=== PATIENT | male | born 1965 | race Caucasian/White ===

== ENCOUNTER 2019-11-28 20:17 | Emergency (ER) | payer MEDICARE, OTHER ==
[~2019-11-28] VITALS: Ht 180.3 cm; Wt 64.4 kg
[~2019-11-28 20:17] MED LIST: NO REPORTABLE MEDS
--- NOTE | 2019-11-28 20:27 | NUR ---
PRESENTED TO THE ER FOR C/O RLE AND R HIP PAIN S/P FALL . PT ALERT, OX4, RESPONSIVE TO QUESTIONS. BLIND. PT WAS ASSISTED TO BED 2 AND WAS PLACED ON A MONITOR ,
--- NOTE | 2019-11-28 20:30 | NUR ---
SHAHEED BARAHONA AT BED SIDE
--- NOTE | 2019-11-28 20:36 | NUR ---
NICO ([facility], KIDNEY CLOUD PHYSICIST) CONTACT INFORMATION: [phone]
--- NOTE | 2019-11-28 20:37 | NUR ---
LAURA () CONTACT INFORMATION: [phone]
[2019-11-28] MEDS ORDERED: TRAMADOL HCL 50 MG TABLET ONE (20:41)
[2019-11-28] MEDS: TRAMADOL HCL 50 MG TABLET PO ONE (20:50)
[2019-11-28 21:03] LABS: BILIRUBIN,URINE Negative (NEGATIVE); BLOOD, URINE Small Ery/uL (NEGATIVE); COLOR,URINE Yellow (YELLOW); KETONES,URINE Negative (NEGATIVE); LEUKOCYTE ESTERASE ,URINE Negative (NEGATIVE); NITRITE, URINE Negative (NEGATIVE); PH,URINE 6.5 (5.0-8.0); PROTEIN,URINE 30 mg/dl (NEGATIVE); UGLUCOSE 100 MG/DL mg/dL (NEGATIVE); UROBILINOGEN,URINE 0.2 EU/dL (0.2)
[2019-11-28 21:12] LABS: APPEARANCE,URINE SLIGHTLY HAZY (CLEAR)
[2019-11-28 21:16] LABS: BACTERIA,URINE Few /HPF (None Seen); SQUAMOUS EPITHELIAL CELL,UR Rare /HPF (None Seen); WBC,URINE 0-2 /HPF (0-3)
--- NOTE | 2019-11-28 21:22 | NUR ---
PT WAS TAKEN TO CT
--- NOTE | 2019-11-28 21:22 | NUR ---
DR MAGALLANES AT BED SIDE
[2019-11-28 21:31] LABS: BASOPHILS % (AUTO) 0.4 % (0.0-2.0); EOSINOPHILS % (AUTO) 0.3 % (0.0-6.0); HEMATOCRIT 27 % (39-51); LYMPHOCYTES # (AUTO) 0.8 /CMM (0.8-4.8); LYMPHOCYTES % (AUTO) 12.6 % (20.0-44.0); MEAN CORPUSCULAR HGB CONC 34 g/dl (31.0-36.0); MEAN CORPUSCULAR VOLUME 102 fL (80-96); MONOCYTES # (AUTO) 0.4 /CMM (0.1-1.30); MONOCYTES % (AUTO) 6.5 % (2.0-12.0); NEUTROPHILS # (AUTO) 4.9 /CMM (1.8-8.9); NEUTROPHILS % (AUTO) 80.2 % (43.0-81.0); PLATELET COUNT (AUTO) 226 /CMM (150-450); RED BLOOD CELL COUNT(AUTO) 2.66 MIL/uL (4.5-6.0); WHITE BLOOD COUNT (AUTO) 6.1 K/uL (4.3-11.0)
[2019-11-28 22:03] LABS: CALCIUM, SERUM 9.1 mg/dL (8.5-10.1); CREATININE 6.1 mg/dL (0.6-1.3); POTASSIUM 4.1 mmol/L (3.5-5.1)
--- NOTE | 2019-11-28 22:12 | NUR ---
[place] SPEAKING WITH NICO ([facility] EDGER MACHINE OPERATOR)
--- NOTE | 2019-11-28 22:32 | NUR ---
PT IS MEDICALLY STABLE OFR D/C. Patient discharged to home in stable condition. Written and verbal after care instructions given. Patient verbalizes understanding of instruction and was assisted to the car via wc
[2019-11-28 22:37] VITALS: BP 151/78
== END 2019-11-28 22:37 | disposition home or self-care (01) ==
LOC: ER 20:28
DX: S30.1XXA Contusion of abdominal wall, initial encounter (principal); S09.8XXA Other specified injuries of head, initial encounter; M25.551 Pain in right hip; D64.9 Anemia, unspecified; I10 Essential (primary) hypertension; E11.9 Type 2 diabetes mellitus without complications; Z86.73 Personal history of transient ischemic attack (TIA), and cerebral infarction without residual deficits; Z94.0 Kidney transplant status; W01.0XXA Fall on same level from slipping, tripping and stumbling without subsequent striking against object, initial encounter; Y93.89 Activity, other specified; Y92.89 Other specified places as the place of occurrence of the external cause; Y99.8 Other external cause status
CPT/HCPCS: 36415; 70450; 72125; 73502; 80048; 81001; 85025; 99285; L0172; 81000-TC

== ENCOUNTER 2019-12-01 09:20 | Emergency (ER) | payer MEDICARE, OTHER ==
[~2019-12-01] VITALS: Ht 182.9 cm; Wt 65.8 kg
[2019-12-01 09:25] VITALS: BP 166/60
[2019-12-01] MEDS ORDERED: ONDANSETRON HCL/PF 4 MG/2 ML VIAL IVP ONE (10:00)
[2019-12-01] MEDS ORDERED: IV NS 0.9% 500 ML BAG IV ONE (10:00)
[2019-12-01] MEDS ORDERED: ONDANSETRON HCL/PF 4 MG/2 ML VIAL ONE (10:06)
[2019-12-01 10:09] LABS: BASOPHILS % (AUTO) 0.6 % (0.0-2.0); EOSINOPHILS % (AUTO) 0.4 % (0.0-6.0); HEMATOCRIT 30 % (39-51); LYMPHOCYTES # (AUTO) 0.9 /CMM (0.8-4.8); LYMPHOCYTES % (AUTO) 13.2 % (20.0-44.0); MEAN CORPUSCULAR HGB CONC 34 g/dl (31.0-36.0); MEAN CORPUSCULAR VOLUME 100 fL (80-96); MONOCYTES # (AUTO) 0.4 /CMM (0.1-1.30); MONOCYTES % (AUTO) 5.2 % (2.0-12.0); NEUTROPHILS # (AUTO) 5.7 /CMM (1.8-8.9); NEUTROPHILS % (AUTO) 80.6 % (43.0-81.0); PLATELET COUNT (AUTO) 224 /CMM (150-450); RED BLOOD CELL COUNT(AUTO) 2.95 MIL/uL (4.5-6.0); WHITE BLOOD COUNT (AUTO) 7.1 K/uL (4.3-11.0)
--- NOTE | 2019-12-01 10:11 | NUR ---
Patient awake alert started heplock LAC and meds given keep patient comfortable .
[2019-12-01 10:19] LABS: CALCIUM, SERUM 9.6 mg/dL (8.5-10.1); POTASSIUM 3.8 mmol/L (3.5-5.1)
--- NOTE | 2019-12-01 10:24 | NUR ---
ADRIÁN ; ASKING FOR UPDATES
[2019-12-01 10:25] LABS: ALBUMIN 3.9 g/dL (3.4-5.0); BILIRUBIN,DIRECT 0.2 mg/dL (0.0-0.2); BILIRUBIN,TOTAL 0.6 mg/dL (0.2-1.0); TOTAL PROTEIN, SERUM 7.7 g/dL (6.4-8.2)
--- NOTE | 2019-12-01 11:47 | NUR ---
Called made aware for DC home instruction agrees to see PMD in 2 datys verblized undertanding .
--- NOTE | 2019-12-01 11:54 | NUR ---
Patient assisted to WC ,removed heplock LAC noted cath intact no edema no pain .
--- NOTE | 2019-12-01 11:56 | NUR ---
Awaiting for for rides home
--- NOTE | 2019-12-01 12:05 | NUR ---
Patient discharged to home in stable condition. Written and verbal after care instructions given. Patient verbalizes understanding of instruction.
== END 2019-12-01 12:17 | disposition home or self-care (01) ==
LOC: ER 09:24
DX: R11.2 Nausea with vomiting, unspecified (principal); E11.9 Type 2 diabetes mellitus without complications; I10 Essential (primary) hypertension; Z85.528 Personal history of other malignant neoplasm of kidney; Z86.73 Personal history of transient ischemic attack (TIA), and cerebral infarction without residual deficits; Z95.5 Presence of coronary angioplasty implant and graft; Z94.0 Kidney transplant status; Z88.5 Allergy status to narcotic agent
CPT/HCPCS: 36415; 71045; 80048; 80076; 83690; 84484; 85025; 93005; 96374; 99285; J2405; J7030

== ENCOUNTER 2021-04-13 00:48 | Inpatient (IN) | payer MEDICARE, OTHER ==
[~2021-04-13] VITALS: Ht 177.8 cm; Wt 71.2 kg
--- NOTE | 2021-04-13 01:08 | NUR ---
PT AAOX4. BIBRA C/O LLQ ABD PAIN. AWAITING ER MD FOR EVAL AND ORDERS.
[2021-04-13] MEDS ORDERED: ACETAMINOPHEN 325 MG TABLET PO ONE (02:00)
[2021-04-13] MEDS ORDERED: IV NS 0.9% 1,000 ML IV ONE (02:00)
[2021-04-13] MEDS ORDERED: ACETAMINOPHEN 325 MG TABLET ONE (02:04)
[2021-04-13 02:06] LABS: CALCIUM, SERUM 9.1 mg/dL (8.5-10.1); CREATININE 1.7 mg/dL (0.6-1.3); POTASSIUM 3.9 mmol/L (3.5-5.1)
[2021-04-13 02:18] LABS: ALBUMIN 3.5 g/dL (3.4-5.0); BILIRUBIN,DIRECT 0.3 mg/dL (0.0-0.2); BILIRUBIN,TOTAL 0.8 mg/dL (0.2-1.0); TOTAL PROTEIN, SERUM 7.2 g/dL (6.4-8.2)
[2021-04-13 02:20] LABS: BASOPHILS % (AUTO) 0.2 % (0.0-2.0); EOSINOPHILS % (AUTO) 0.1 % (0.0-6.0); HEMATOCRIT 37 % (39-51); HEMOGLOBIN 12.9 g/dL (13.5-17.5); LYMPHOCYTES # (AUTO) 0.6 K/uL (0.8-4.8); LYMPHOCYTES % (AUTO) 26.5 % (20.0-44.0); MEAN CORPUSCULAR HGB CONC 35 g/dl (31.0-36.0); MEAN CORPUSCULAR VOLUME 94 fL (80-96); MONOCYTES # (AUTO) 0.2 K/uL (0.1-1.30); MONOCYTES % (AUTO) 8.4 % (2.0-12.0); NEUTROPHILS # (AUTO) 1.6 K/uL (1.8-8.9); NEUTROPHILS % (AUTO) 64.8 % (43.0-81.0); PLATELET COUNT (AUTO) 138 K/uL (150-450); RED BLOOD CELL COUNT(AUTO) 3.97 MIL/uL (4.5-6.0); WHITE BLOOD COUNT (AUTO) 2.4 K/uL (4.3-11.0)
--- NOTE | 2021-04-13 04:07 | NUR ---
COVID SWAB DONE AND SENT TO LAB
--- NOTE | 2021-04-13 04:15 | NUR ---
URINE COLLECTED AND SENT TO LAB
[2021-04-13] MEDS ORDERED: MAGNESIUM HYDROXIDE 30 ML UDC PO PRN (04:30)
[2021-04-13] MEDS ORDERED: HYDROCODONE/APAP 5/325MG TABLET PO PRN (04:30)
[2021-04-13] MEDS ORDERED: ONDANSETRON HCL/PF 4 MG/2 ML VIAL IVP PRN (04:30)
[2021-04-13] MEDS ORDERED: ACETAMINOPHEN 325 MG TABLET PO PRN (04:30)
[2021-04-13] MEDS ORDERED: ZOLPIDEM TARTRATE 5 MG TABLET PO PRN (04:30)
[2021-04-13] MEDS ORDERED: MAG HYDROX/AL HYDROX/SIMETH 30 ML UDC PO PRN (04:30)
[2021-04-13] MEDS ORDERED: Z GUARD REMEDY 4 OZ OINT TP PRN (04:30)
[2021-04-13 04:33] LABS: BILIRUBIN,URINE NEGATIVE (NEGATIVE); COLOR,URINE YELLOW (YELLOW); LEUKOCYTE ESTERASE ,URINE NEGATIVE (NEGATIVE); NITRITE, URINE NEGATIVE (NEGATIVE); PROTEIN,URINE 30 mg/dl (NEGATIVE); UGLUCOSE 100 MG/DL mg/dL (NEGATIVE)
[2021-04-13] MEDS ORDERED: GABAPENTIN 300 MG CAPSULE PO SCH (06:00)
[2021-04-13] MEDS ORDERED: TRAZODONE 50 MG TABLET PO SCH (06:00)
--- NOTE | 2021-04-13 07:24 | NUR ---
REPORT GIVEN TO DILSHAD FRANKS FOR [place]
[2021-04-13] MEDS ORDERED: PANTOPRAZOLE 40 MG TABLET.DR PO ONE (07:39)
[2021-04-13] MEDS ORDERED: DEXAMETHASONE SOD PHOSPHATE 10 MG/ML VIAL ONE (08:04)
[2021-04-13] MEDS: PANTOPRAZOLE 40 MG TABLET.DR PO SCH ×2 (08:12→21:56)
[2021-04-13 08:54] LABS: NEUTROPHILS % (MANUAL) 57 (42-76)
[2021-04-13 08:55] LABS: BAND % (MANUAL) 10 % (0.0-5.0); LYMPHOCYTES % (MANUAL) 23 % (16-48); MONOCYTES % (MANUAL) 10 % (0-11.0)
[2021-04-13] MEDS ORDERED: DEXAMETHASONE SOD PHOSPHATE 10 MG/ML VIAL IV SCH (09:00)
--- NOTE | 2021-04-13 09:32 | NUR ---
REPORT GIVEN TO MELA FRANKS FOR [place]
[2021-04-13] MEDS ORDERED: AMLO-213 PO (10:43)
[2021-04-13] MEDS ORDERED: TAMS-12 PO (10:43)
[2021-04-13] MEDS ORDERED: CARV25TA2 PO (10:43)
[2021-04-13] MEDS ORDERED: ESCI10TA PO (10:43)
[2021-04-13] MEDS ORDERED: PITA1TAB PO (10:43)
[2021-04-13] MEDS ORDERED: PHOS250T5 PO (10:43)
[2021-04-13] MEDS ORDERED: LANS30CA56 PO (10:43)
[2021-04-13] MEDS ORDERED: INSU100V7 SQ (10:43)
[2021-04-13] MEDS ORDERED: TRAZ-257 PO (10:43)
[2021-04-13] MEDS ORDERED: PRED2.5T PO (10:43)
[2021-04-13] MEDS ORDERED: GABA-532 PO ×2 (10:43)
[2021-04-13] MEDS ORDERED: CHOL100043 PO (10:43)
[2021-04-13] MEDS ORDERED: OMEG1CAP PO (10:43)
[2021-04-13] MEDS ORDERED: LORA-259 PO (10:43)
[2021-04-13] MEDS ORDERED: TACR1CAP2 PO ×2 (10:43)
[2021-04-13] MEDS ORDERED: MYCO180T3 PO (10:43)
[2021-04-13] MEDS ORDERED: INSU100V27 SQ (10:43)
[2021-04-13] MEDS ORDERED: MULT-24 PO (10:43)
--- NOTE | 2021-04-13 10:49 | NUR ---
PT TRANSPORTED USING ACLS PROTOCOL
--- NOTE | 2021-04-13 11:00 | NUR ---
RN NOTES PATIENT RECEIVED FROM ER DEPT REPORT TAKEN FROM ALLIE FRANKS. PATIENT ALERT/ORIENTED X 3, ABLE TO MAKE NEEDS KNOWN. PATIENT TOLERATING ROOM AIR WELL SAT 97%. ADMITTING DX IS ABDOMINAL PAIN, COVID POSITIVE. PATIENT IS BLIND. IV ACCESS ON LEFT AC #18, PATENT AND INTACT. PATIENT REFUSED TO CHANGE INTO HOSPITAL GOWN. ALL BELONGINGS ACCOUNTED FOR AND LISTED ON CHART. PATIENT HAD A BOTTLE OF ATIVAN WITH HIM, COUNTED 26 OF TABLETS, LISTED AND GIVEN TO PHARMACY. SKIN IS INTACT. ALL NEEDS ATTENDED. ALL APPLICABLE ISOLATION PRECAUTIONS IN PLACE. ALL SAFETY MEASURES IN PLACE. HOB ELEVATED BED LOCKED AND IN LOWEST POSITION WITH SIDERAILS UP CALL LIGHT WITHIN REACH. WILL CONTINUE TO MONITOR ACCORDINGLY.
[2021-04-13] MEDS ORDERED: AMLODIPINE BESYLATE 10 MG TABLET PO PRN (11:30)
[2021-04-13] MEDS ORDERED: DEXTROSE 50%-WATER 50 ML DISP.SYRIN IV PRN (11:30)
[2021-04-13] MEDS ORDERED: LORAZEPAM 1 MG TABLET PO PRN ×2 (11:30→16:30)
[2021-04-13 12:00] VITALS: BP 113/57
[2021-04-13] MEDS ORDERED: CARVEDILOL 12.5 MG TABLET PO PRN ×2 (12:30→12:55)
[2021-04-13] MEDS: INSULIN REGULAR, HUMAN 100 UNIT/ML 3 ML VIAL SQ PRN ×2 (13:59→17:49)
[2021-04-13] MEDS: CEFTRIAXONE 1 G in IV D5W 50 ML IV SCH (14:01)
[2021-04-13] MEDS: BLOOD SUGAR DIAGNOSTIC 1 EACH STRIP VI SCH ×3 (14:20→22:16)
[2021-04-13] MEDS: predniSONE 5 MG TABLET PO SCH (14:20)
[2021-04-13] MEDS: METRONIDAZOLE 500MG/ NS 100ML 500 MG in PREMIX 1 EA IV SCH ×2 (14:42→21:55)
[2021-04-13] MEDS: IV D5/0.45 NACL 1,000 ML IV PRN (14:44)
[2021-04-13 16:00] VITALS: BP 120/64
[2021-04-13] MEDS: K PHOS NEUTRAL 250 MG TABLET PO SCH (16:46)
[2021-04-13] MEDS: GABAPENTIN 300 MG CAPSULE PO SCH ×2 (16:46→21:56)
[2021-04-13] MEDS: MORPHINE SULFATE INJ 2 MG/ML DISP.SYRIN IV PRN ×2 (17:18→22:25)
[2021-04-13] MEDS: TACROLIMUS ANHYDROUS 0.5 MG CAPSULE PO SCH (18:16)
--- NOTE | 2021-04-13 19:13 | NUR ---
RN CLOSING NOTES PATIENT REMAINS IN STABLE CONDITION THROUGHOUT SHIFT. BREATHING EVEN AND UNLABORED ON ROOM AIR TOLERATING WELL SAT 97 %. IV ACCESS ON LEFT AC #18 PATENT AND INTACT, INFUSING D5 1/2 NS @ 75MLL/HR NO SIGNS OF INFILTRATIONS. ALL DUE MEDS GIVEN ORDERED. KEPT PATIENT CLEAN, DRY AND COMFORTABLE. ALL NEEDS ATTENDED. ALL APPLICABLE ISOLATION PRECAUTIONS IN PLACE. ALL SAFETY MEASURES IN PLACE: HOB ELEVATED, BED LOCKED AND IN LOWEST POSITION WITH SIDERAILS UP. CALL LIGHT WITHIN REACH. WILL ENDORSE TO ONCOMING NURSE FOR CONTINUITY OF CARE.
[2021-04-13] MEDS: MYCOPHENOLATE SODIUM 180 MG TABLET.DR PO SCH (21:00)
[2021-04-13] MEDS: TRAZODONE 50 MG TABLET PO SCH (21:55)
[2021-04-13 22:00] VITALS: BP 130/68
[2021-04-13] MEDS: INSULIN GLARGINE, 100 UNIT/ML CARTRIDGE SQ SCH (22:17)
[2021-04-13] MEDS: *INSULIN REGULAR(HUMULIN R)HUM 100 UNIT/ML VIAL SQ PRN (22:19)
[2021-04-13] MEDS ORDERED: MYCOPHENOLATE SODIUM 180 MG TABLET.DR PO ONE ×2 (23:28→23:30)
[2021-04-13] MEDS: LORAZEPAM 1 MG TABLET PO PRN (23:30)
--- NOTE | 2021-04-13 23:30 | NUR ---
RN NOTES, MYFORTC MEDICATION AVAILABLE ONLY 2 TABS, PT SHOULD RECEIVED 3 TABS 180MG, PER MIKHAIL GIVE THE 2 TABS AVAILABLE, ORDER NOTED AND CARRIED OUT.
[2021-04-14] VITALS: BP 146/73
[2021-04-14 04:00] VITALS: BP 146/73
[2021-04-14] MEDS: METRONIDAZOLE 500MG/ NS 100ML 500 MG in PREMIX 1 EA IV SCH ×3 (06:13→21:08)
--- NOTE | 2021-04-14 07:30 | NUR ---
ENDORSE TO PATIENT TO DEBORAH FRANKS FOR CON OF CARE, NO SIGNIFICANT CHANGE IN CONDITION DURING THE NIGHT.
[2021-04-14 07:38] LABS: BASOPHILS % (AUTO) 0.2 % (0.0-2.0); EOSINOPHILS % (AUTO) 0.1 % (0.0-6.0); HEMATOCRIT 36 % (39-51); HEMOGLOBIN 12.4 g/dL (13.5-17.5); LYMPHOCYTES # (AUTO) 0.5 K/uL (0.8-4.8); LYMPHOCYTES % (AUTO) 22.4 % (20.0-44.0); MEAN CORPUSCULAR HGB CONC 35 g/dl (31.0-36.0); MEAN CORPUSCULAR VOLUME 95 fL (80-96); MONOCYTES # (AUTO) 0.2 K/uL (0.1-1.30); MONOCYTES % (AUTO) 8.6 % (2.0-12.0); NEUTROPHILS # (AUTO) 1.5 K/uL (1.8-8.9); NEUTROPHILS % (AUTO) 68.7 % (43.0-81.0); PLATELET COUNT (AUTO) 130 K/uL (150-450); RED BLOOD CELL COUNT(AUTO) 3.77 MIL/uL (4.5-6.0); WHITE BLOOD COUNT (AUTO) 2.2 K/uL (4.3-11.0)
--- NOTE | 2021-04-14 07:42 | NUR ---
FIBERGLASS BOAT MAKER OPENING NOTES RECEIVED PATIENT IN BED, AWAKE, A/O X4. PATIENT IS BLIND. PATIENT ON ROOM AIR; BREATHING EVEN AND UNLABORED; NO SOB NOTED AT THIS TIME. TELE MONITOR WITH A CURRENT READING OF SR 90. IV ACCESS AT LAC G # 18 PRESENT AND INTACT INFUSING D5 1/2 NS @ 75 MLS/HR. NO COMPLAINS OF PAIN. SAFETY PRECAUTIONS IN PLACE; BED IN LOW POSITION AND LOCKED, RAILS UP X2, CALL LIGHT WITHIN REACH. WILL CONTINUE TO MONITOR PATIENT.
[2021-04-14] MEDS: BLOOD SUGAR DIAGNOSTIC 1 EACH STRIP VI SCH ×4 (07:53→22:26)
[2021-04-14] MEDS: TAMSULOSIN 0.4 MG CAP.SR.24H PO SCH (08:21)
[2021-04-14] MEDS: MULTIVITAMINS,THERAGRAN 1 UDTAB TABLET PO SCH (08:21)
[2021-04-14] MEDS: ESCITALOPRAM OXALATE (10 MG) 10 MG TABLET PO SCH (08:21)
[2021-04-14] MEDS: K PHOS NEUTRAL 250 MG TABLET PO SCH ×2 (08:21→16:47)
[2021-04-14] MEDS: CHOLECALCIFEROL 1,000 UNIT TABLET (VIT D3) PO SCH (08:22)
[2021-04-14] MEDS: PANTOPRAZOLE 40 MG TABLET.DR PO SCH ×3 (08:22→21:08)
[2021-04-14] MEDS: TACROLIMUS ANHYDROUS 0.5 MG CAPSULE PO SCH ×2 (08:22→17:35)
[2021-04-14] MEDS: predniSONE 5 MG TABLET PO SCH (08:22)
[2021-04-14 08:25] LABS: CREATININE 1.4 mg/dL (0.6-1.3); MAGNESIUM 2.2 mg/dL (1.8-2.4); PHOSPHORUS 3.6 mg/dL (2.5-4.9); POTASSIUM 3.6 mmol/L (3.5-5.1)
[2021-04-14] MEDS: LORAZEPAM 1 MG TABLET PO PRN ×3 (08:29→23:00)
[2021-04-14] MEDS ORDERED: DIATR MEGLU/DIATRIZOATE SODIUM 120 ML BOTTLE (GASTROGRAPHIN) ONE (08:54)
[2021-04-14] MEDS: MYCOPHENOLATE SODIUM 180 MG TABLET.DR PO SCH ×2 (09:00→21:08)
[2021-04-14] MEDS: IV D5/0.45 NACL 1,000 ML IV PRN (10:11)
--- NOTE | 2021-04-14 10:32 | NUR ---
TELE EN NOTES PATIENT COMPLAINING OF NAUSEA; REQUESTING MEDICATION. PRN ZOFRAN ADMINISTERED.
[2021-04-14 10:45] VITALS: BP 130/55
[2021-04-14 12:11] VITALS: BP 135/58
[2021-04-14] MEDS: DOCUSATE SODIUM 100 MG CAPSULE PO SCH ×2 (12:12→16:45)
[2021-04-14] MEDS: CEFTRIAXONE 1 G in IV D5W 50 ML IV SCH (12:25)
[2021-04-14] MEDS: POLYETHYLENE GLYCOL 3350 17 GM POWD.PACK PO SCH (12:26)
[2021-04-14] MEDS: GABAPENTIN 300 MG CAPSULE PO SCH ×2 (16:47→21:08)
[2021-04-14 17:47] VITALS: BP 146/78
--- NOTE | 2021-04-14 18:54 | NUR ---
PEER COUNSELOR CLOSING NOTES PATIENT REMAINS IN BED, AWAKE, A/O X4. PATIENT IS BLIND. PATIENT ON ROOM AIR; BREATHING EVEN AND UNLABORED; NO SOB NOTED AT THIS TIME. ON OXYGEN THERAPY AT 3 LPM VIA NASAL CANULA. TELE MONITOR WITH A CURRENT READING OF ST 105. IV ACCESS AT LAC G # 18 PRESENT AND INTACT INFUSING D5 1/2 NS @ 75 MLS/HR. NO COMPLAINS OF PAIN AT THIS TIME. ALL NEEDS ATTENDED DURING THE DAY. SAFETY PRECAUTIONS IN PLACE; BED IN LOW POSITION AND LOCKED, RAILS UP X2, CALL LIGHT WITHIN REACH. WILL ENDORSE TO SECURITY INSTALLER NURSE FOR [place].
--- NOTE | 2021-04-14 19:10 | NUR ---
RN OPENING NOTES RECEIVED PATIENT IN BED, AWAKE, A/O X4. 0N NASAL CANULA @ 3LPM, NO SOB NOTED, NO S/S OF DISTRESS NOTED.NOTED WITH IV ACCESS AT LAC G # 18 PRESENT AND INTACT INFUSING D5 1/2 NS @ 75 MLS/HR. NO COMPLAINS OF PAIN. SAFETY PRECAUTIONS IN PLACE; BED IN LOWEST POSITION AND LOCKED, RAILS UP X2, CALL LIGHT WITHIN REACH. WILL CONTINUE TO MONITOR PATIENT
[2021-04-14 20:00] VITALS: BP 159/59
[2021-04-14] MEDS: TRAZODONE 50 MG TABLET PO SCH (21:09)
[2021-04-14] MEDS: *INSULIN REGULAR(HUMULIN R)HUM 100 UNIT/ML VIAL SQ PRN (22:27)
[2021-04-14] MEDS: INSULIN GLARGINE, 100 UNIT/ML CARTRIDGE SQ SCH (22:29)
[2021-04-15] VITALS: BP 102/56
[2021-04-15 04:00] VITALS: BP 129/67
[2021-04-15] MEDS: METRONIDAZOLE 500MG/ NS 100ML 500 MG in PREMIX 1 EA IV SCH (04:59)
--- NOTE | 2021-04-15 07:45 | NUR ---
RN CLOSING NOTES PATIENT REMAIN STABLE , NO SOB NOTED, NO S/S OF DISTRESS NOTED.NOTED WITH IV ACCESS AT LAC G # 18 PRESENT AND INTACT INFUSING D5 1/2 NS @ 75 MLS/HR. ALL DUE MEDS GIVEN ORDERED. NO COMPLAINS OF PAIN. SAFETY PRECAUTIONS IN PLACE; BED IN LOWEST POSITION AND LOCKED, RAILS UP X2, CALL LIGHT WITHIN REACH. WILL CONTINUE TO MONITOR PATIENT
[2021-04-15 08:00] VITALS: BP 121/66
[2021-04-15] MEDS: PANTOPRAZOLE 40 MG TABLET.DR PO SCH ×2 (09:00→09:32)
[2021-04-15] MEDS: POLYETHYLENE GLYCOL 3350 17 GM POWD.PACK PO SCH (09:31)
[2021-04-15] MEDS: TAMSULOSIN 0.4 MG CAP.SR.24H PO SCH (09:31)
[2021-04-15] MEDS: ESCITALOPRAM OXALATE (10 MG) 10 MG TABLET PO SCH (09:31)
[2021-04-15] MEDS: TACROLIMUS ANHYDROUS 0.5 MG CAPSULE PO SCH (09:31)
[2021-04-15] MEDS: MULTIVITAMINS,THERAGRAN 1 UDTAB TABLET PO SCH (09:32)
[2021-04-15] MEDS: predniSONE 5 MG TABLET PO SCH (09:32)
[2021-04-15] MEDS: CHOLECALCIFEROL 1,000 UNIT TABLET (VIT D3) PO SCH (09:32)
[2021-04-15] MEDS: K PHOS NEUTRAL 250 MG TABLET PO SCH (09:32)
[2021-04-15] MEDS: DOCUSATE SODIUM 100 MG CAPSULE PO SCH (09:32)
[2021-04-15] MEDS: BLOOD SUGAR DIAGNOSTIC 1 EACH STRIP VI SCH ×2 (09:32→12:10)
[2021-04-15] MEDS: MYCOPHENOLATE SODIUM 180 MG TABLET.DR PO SCH (09:35)
[2021-04-15 09:51] LABS: BASOPHILS % (AUTO) 0.2 % (0.0-2.0); EOSINOPHILS % (AUTO) 0.1 % (0.0-6.0); HEMATOCRIT 34 % (39-51); HEMOGLOBIN 11.8 g/dL (13.5-17.5); LYMPHOCYTES # (AUTO) 0.5 K/uL (0.8-4.8); LYMPHOCYTES % (AUTO) 23.1 % (20.0-44.0); MEAN CORPUSCULAR HGB CONC 34 g/dl (31.0-36.0); MEAN CORPUSCULAR VOLUME 95 fL (80-96); MONOCYTES # (AUTO) 0.2 K/uL (0.1-1.30); MONOCYTES % (AUTO) 8.2 % (2.0-12.0); NEUTROPHILS # (AUTO) 1.4 K/uL (1.8-8.9); NEUTROPHILS % (AUTO) 68.4 % (43.0-81.0); PLATELET COUNT (AUTO) 129 K/uL (150-450); RED BLOOD CELL COUNT(AUTO) 3.62 MIL/uL (4.5-6.0); WHITE BLOOD COUNT (AUTO) 2.1 K/uL (4.3-11.0)
[2021-04-15 09:57] LABS: CALCIUM, SERUM 8.7 mg/dL (8.5-10.1); CREATININE 1.5 mg/dL (0.6-1.3); POTASSIUM 3.2 mmol/L (3.5-5.1)
[2021-04-15 10:02] LABS: ALBUMIN 3.1 g/dL (3.4-5.0); BILIRUBIN,TOTAL 0.4 mg/dL (0.2-1.0); TOTAL PROTEIN, SERUM 6.4 g/dL (6.4-8.2)
[2021-04-15] MEDS: LORAZEPAM 1 MG TABLET PO PRN (10:24)
[2021-04-15] MEDS ORDERED: DOCU100C36 PO (10:52)
[2021-04-15] MEDS ORDERED: AMOX-430 PO (10:52)
[2021-04-15] MEDS ORDERED: POTASSIUM CHLORIDE 20 MEQ TAB.PRT.SR PO ONE (11:00)
[2021-04-15 12:00] VITALS: BP 121/66
--- NOTE | 2021-04-15 12:22 | NUR ---
telecom sales consultant note checked patient saturation on ra , 96% ,no sob noted ,also asked if he need o2 at home ,stated i am ok no needs o2 at home
[2021-04-15] MEDS ORDERED: METRONIDAZOLE 500 MG TABLET PO SCH (13:00)
[2021-04-15] MEDS: CEFTRIAXONE 1 G in IV D5W 50 ML IV SCH (14:01)
--- NOTE | 2021-04-15 15:02 | NUR ---
RN NOTE PT D/C TO HOME, IN STABLE CONDITION. NOT IN RESPIRATORY DISTRESS. IN ROOM AIR. V/S WNL. D/C INSTRUCTIONS GIVEN TO PT AND VERBALIZED UNDERSTANDING. PT BELONGINGS CHECKED. PICKED UP BY 2 AMBULANCE PERSONNEL.
== END 2021-04-15 14:47 | disposition home or self-care (01) | DRG 388 ==
LOC: ER 00:49 → TRANSITION 05:46 → TELE1 09:21
PROVIDERS: ADMIT Internal Medicine; ATTEND Internal Medicine
DX: K56.7 Ileus, unspecified (principal); J12.82 Pneumonia due to coronavirus disease 2019; N17.0 Acute kidney failure with tubular necrosis; U07.1 COVID-19; Z94.0 Kidney transplant status; D84.9 Immunodeficiency, unspecified; E87.2 Acidosis; K52.9 Noninfective gastroenteritis and colitis, unspecified; J44.9 Chronic obstructive pulmonary disease, unspecified; I12.9 Hypertensive chronic kidney disease with stage 1 through stage 4 chronic kidney disease, or unspecified chronic kidney disease; N18.9 Chronic kidney disease, unspecified; E86.0 Dehydration; Z86.73 Personal history of transient ischemic attack (TIA), and cerebral infarction without residual deficits; Z95.5 Presence of coronary angioplasty implant and graft; Z79.899 Other long term (current) drug therapy; N20.0 Calculus of kidney; E11.22 Type 2 diabetes mellitus with diabetic chronic kidney disease; E11.42 Type 2 diabetes mellitus with diabetic polyneuropathy; Z88.5 Allergy status to narcotic agent; F32.A Depression, unspecified; E21.2 Other hyperparathyroidism; H54.3 Unqualified visual loss, both eyes; I25.10 Atherosclerotic heart disease of native coronary artery without angina pectoris
CPT/HCPCS: 36415; 71045-TC; 74250-TC; 80048-TC; 80053-TC; 80076-TC; 82962-TC; 83605-TC; 83690-TC; 83735-TC; 83970; 84100-TC; 84484-TC; 85025-TC; 87040-TC; A4216; G0378; J0696; J1100; J1815; J2270; J2405; J3490; J7030; J7050; J7060; J7507; J7512; J7518; Q9963

== ENCOUNTER 2022-02-02 10:46 | Inpatient (IN) | payer MEDICARE, OTHER ==
[~2022-02-02] VITALS: Ht 177.8 cm; Wt 77.6 kg
[~2022-02-02 10:46] MED LIST changes: +AMLO-213 PO; +AMOX-430 PO; +CARV25TA2 PO; +CHOL100043 PO; +DOCU100C36 PO; +ESCI10TA PO; +GABA-532 PO; +INSU100V7 SQ; +LANS30CA56 PO; +LORA-259 PO; +MULT-24 PO; +MYCO180T3 PO; -NO REPORTABLE MEDS; +OMEG1CAP PO; +PHOS250T5 PO; +PRED2.5T PO; +TACR1CAP2 PO; +TAMS-12 PO; +TRAZ-257 PO
--- NOTE | 2022-02-02 11:00 | NUR ---
BIBRA78 HOME C/O GENERALIZED WEAKNESS, DIARRHEA X 1 MONTH. PLACED ON BED, AAOX4.
--- NOTE | 2022-02-02 11:20 | NUR ---
AUTOMATIC CASTING MACHINE OPERATOR AT BEDSIDE
[2022-02-02 11:29] LABS: BASOPHILS % (AUTO) 0.9 % (0.0-2.0); EOSINOPHILS % (AUTO) 0.4 % (0.0-6.0); HEMATOCRIT 26 % (39-51); HEMOGLOBIN 8.8 g/dL (13.5-17.5); LYMPHOCYTES # (AUTO) 0.6 K/uL (0.8-4.8); LYMPHOCYTES % (AUTO) 15.1 % (20.0-44.0); MEAN CORPUSCULAR HGB CONC 34 g/dl (31.0-36.0); MEAN CORPUSCULAR VOLUME 97 fL (80-96); MONOCYTES # (AUTO) 0.1 K/uL (0.1-1.30); MONOCYTES % (AUTO) 2.5 % (2.0-12.0); NEUTROPHILS # (AUTO) 3.2 K/uL (1.8-8.9); NEUTROPHILS % (AUTO) 81.1 % (43.0-81.0); PLATELET COUNT (AUTO) 158 K/uL (150-450); RED BLOOD CELL COUNT(AUTO) 2.69 MIL/uL (4.5-6.0)
[2022-02-02 11:43] LABS: CALCIUM, SERUM 8.7 mg/dL (8.5-10.1); CREATININE 3.1 mg/dL (0.6-1.3); POTASSIUM 3.9 mmol/L (3.5-5.1)
[2022-02-02 11:50] LABS: ALBUMIN 3.6 g/dL (3.4-5.0); BILIRUBIN,DIRECT 0.2 mg/dL (0.0-0.2); BILIRUBIN,TOTAL 0.5 mg/dL (0.2-1.0); TOTAL PROTEIN, SERUM 6.9 g/dL (6.4-8.2)
[2022-02-02] MEDS ORDERED: FUROSEMIDE 40 MG/4 ML VIAL IV ONE (12:30)
[2022-02-02] MEDS ORDERED: NITROGLYCERIN PACKET 1 GM PACKET TD ONE (12:30)
[2022-02-02] MEDS ORDERED: ASPIRIN 325 MG TABLET PO ONE (12:30)
[2022-02-02] MEDS ORDERED: NITROGLYCERIN PACKET 1 GM PACKET ONE (12:37)
[2022-02-02] MEDS ORDERED: FUROSEMIDE 40 MG/4 ML VIAL ONE (12:37)
[2022-02-02] MEDS ORDERED: ASPIRIN 325 MG TABLET ONE (12:38)
[2022-02-02] MEDS ORDERED: TOLT2TAB2 PO (12:58)
[2022-02-02] MEDS ORDERED: SODI10PO PO (12:58)
[2022-02-02] MEDS ORDERED: VALG450T4 PO (12:58)
[2022-02-02] MEDS ORDERED: LATA2.5D15 EACHEYE (12:58)
[2022-02-02] MEDS ORDERED: BRIM5DRO2 EACHEYE (12:58)
[2022-02-02] MEDS ORDERED: INSU100V11 SQ (12:58)
[2022-02-02] MEDS ORDERED: ENAL10TA39 PO (12:58)
[2022-02-02] MEDS ORDERED: TACR1CAP2 PO (13:04)
[2022-02-02] MEDS ORDERED: MYCO180T3 PO (13:04)
--- NOTE | 2022-02-02 13:06 | NUR ---
SWAB FOR CIVID19 SENT TO LAB
[2022-02-02] MEDS ORDERED: OMEP20CA15 PO (13:27)
[2022-02-02] MEDS ORDERED: TACR0.5C4 PO (13:27)
[2022-02-02] MEDS ORDERED: LANS30CA56 PO (13:27)
[2022-02-02] MEDS ORDERED: AMLO-213 PO (13:27)
[2022-02-02] MEDS ORDERED: ESCI10TA PO (13:27)
[2022-02-02] MEDS ORDERED: NIFE-34 PO (13:27)
--- NOTE | 2022-02-02 14:19 | NUR ---
[facility] CALLED SUPERVISOR BORDER DEPARTMENT PAGED.
[2022-02-02] MEDS ORDERED: MAGNESIUM HYDROXIDE 30 ML UDC PO PRN (15:30)
[2022-02-02] MEDS ORDERED: INSULIN REGULAR, HUMAN 100 UNIT/ML 3 ML VIAL SQ PRN (15:30)
[2022-02-02] MEDS ORDERED: HEPARIN INFUSION/D5W 500 ML IV PRN (15:30)
[2022-02-02] MEDS ORDERED: Z GUARD REMEDY 4 OZ OINT TP PRN (15:30)
[2022-02-02] MEDS ORDERED: ONDANSETRON HCL/PF 4 MG/2 ML VIAL IVP PRN (15:30)
[2022-02-02] MEDS ORDERED: DEXTROSE 50%-WATER 50 ML DISP.SYRIN IV PRN (15:30)
[2022-02-02] MEDS ORDERED: MAG HYDROX/AL HYDROX/SIMETH 30 ML UDC PO PRN (15:30)
[2022-02-02] MEDS ORDERED: *INSULIN REGULAR(HUMULIN R)HUM 100 UNIT/ML VIAL SQ PRN (15:30)
[2022-02-02] MEDS ORDERED: ACETAMINOPHEN 325 MG TABLET PO PRN (15:30)
--- NOTE | 2022-02-02 15:55 | NUR ---
URINE SAMPLE SENT TO LAB
[2022-02-02 16:00] LABS: BILIRUBIN,URINE NEGATIVE (NEGATIVE); COLOR,URINE YELLOW (YELLOW); LEUKOCYTE ESTERASE ,URINE NEGATIVE (NEGATIVE); NITRITE, URINE NEGATIVE (NEGATIVE); PROTEIN,URINE NEGATIVE (NEGATIVE); UGLUCOSE NEGATIVE (NEGATIVE); UROBILINOGEN,URINE 0.2 EU/dL (0.2)
[2022-02-02 16:43] LABS: BACTERIA,URINE None seen /HPF (None Seen); SQUAMOUS EPITHELIAL CELL,UR 0-2 /HPF (None Seen); WBC,URINE 0-2 /HPF (0-3)
[2022-02-02] MEDS ORDERED: ENALAPRIL MALEATE (10 MG) 10 MG TABLET PO SCH (17:00)
[2022-02-02] MEDS ORDERED: BRIMONIDINE TARTRATE OPHT SOLN 5 ML BOTTLE EACHEYE SCH (17:00)
[2022-02-02] MEDS ORDERED: VALGANCICLOVIR 450 MG PO SCH (17:00)
[2022-02-02] MEDS ORDERED: GABAPENTIN 100 MG CAPSULE PO SCH (17:00)
[2022-02-02] MEDS ORDERED: CARVEDILOL 12.5 MG TABLET PO SCH (17:00)
[2022-02-02] MEDS ORDERED: TIMOLOL 0.5% SOLN OPHTH 5 ML BOTTLE OP SCH (17:00)
--- NOTE | 2022-02-02 17:05 | NUR ---
CALLED [facility] [phone] FOR TRANSFER WAITING 1 HOUR +
[2022-02-02] MEDS ORDERED: BLOOD SUGAR DIAGNOSTIC 1 EACH STRIP VI SCH (17:30)
[2022-02-02] MEDS ORDERED: GABAPENTIN 300 MG CAPSULE ONE (18:04)
--- NOTE | 2022-02-02 18:22 | NUR ---
CALLED [facility] [phone] PER PAWEL REQUESTING CLINICALS FAXED TO [phone].
[2022-02-02] MEDS ORDERED: IV D5/ 0.9% NACL 1,000 ML IV ONE (18:30)
--- NOTE | 2022-02-02 20:15 | NUR ---
SWAB FOR PCR SENT TO LAB
[2022-02-02] MEDS ORDERED: LORAZEPAM INJ 2 MG/ML VIAL IV ONE (20:30)
[2022-02-02] MEDS ORDERED: FUROSEMIDE 40 MG/4 ML VIAL IV SCH (21:00)
--- NOTE | 2022-02-02 21:49 | NUR ---
CALLED AND SPOKE WITH JAYESH FROM TRANSFER CENTER TO FOLLOW UP ON TRANSFER. PER JAYESH, CASE IS PENDING PHYSICIAN DETERMINATION WELL FINANCIAL CLEARANCE
[2022-02-02] MEDS ORDERED: TRAZODONE 50 MG TABLET PO SCH (22:00)
[2022-02-02] MEDS ORDERED: TRAZODONE 50 MG TABLET ONE (22:08)
[2022-02-02] MEDS ORDERED: CARVEDILOL 12.5 MG TABLET ONE (22:08)
[2022-02-02] MEDS ORDERED: LORAZEPAM INJ 2 MG/ML VIAL ONE (22:09)
--- NOTE | 2022-02-03 02:06 | NUR ---
Patient is resting comfortably in bed with eyes closed. Easily aroused. VSS
[2022-02-03] MEDS ORDERED: LORAZEPAM 1 MG TABLET ONE ×2 (03:07→12:10)
[2022-02-03] MEDS: LORAZEPAM 1 MG TABLET PO PRN ×2 (03:14→12:14)
[2022-02-03 05:18] LABS: BASOPHILS % (AUTO) 0.9 % (0.0-2.0); EOSINOPHILS % (AUTO) 0.4 % (0.0-6.0); HEMATOCRIT 25 % (39-51); HEMOGLOBIN 8.4 g/dL (13.5-17.5); LYMPHOCYTES # (AUTO) 0.7 K/uL (0.8-4.8); LYMPHOCYTES % (AUTO) 17.4 % (20.0-44.0); MEAN CORPUSCULAR HGB CONC 34 g/dl (31.0-36.0); MEAN CORPUSCULAR VOLUME 98 fL (80-96); MONOCYTES # (AUTO) 0.1 K/uL (0.1-1.30); MONOCYTES % (AUTO) 3.3 % (2.0-12.0); PLATELET COUNT (AUTO) 154 K/uL (150-450); RED BLOOD CELL COUNT(AUTO) 2.55 MIL/uL (4.5-6.0); WHITE BLOOD COUNT (AUTO) 3.8 K/uL (4.3-11.0)
[2022-02-03 05:35] LABS: CALCIUM, SERUM 8.4 mg/dL (8.5-10.1); CREATININE 3.1 mg/dL (0.6-1.3); MAGNESIUM 1.9 mg/dL (1.8-2.4); POTASSIUM 3.5 mmol/L (3.5-5.1)
[2022-02-03] MEDS ORDERED: ONDANSETRON HCL/PF 4 MG/2 ML VIAL ONE (06:02)
[2022-02-03] MEDS ORDERED: ONDANSETRON HCL/PF 4 MG/2 ML VIAL IV ONE (06:30)
--- NOTE | 2022-02-03 06:47 | NUR ---
CALLED [facility] BUT NO ANSWER. TRIED MULTIPLE TIMES BUT TO NO AVAIL OF TALKING TO SOMEONE.
--- NOTE | 2022-02-03 07:20 | NUR ---
RECEIVED PT from MAO FRANKS PT AWAKE AND BAMT PLANING TO TRANSFER TO
[2022-02-03] MEDS ORDERED: PANTOPRAZOLE 40 MG TABLET.DR PO SCH (07:30)
--- NOTE | 2022-02-03 08:29 | NUR ---
CALLED [facility] TO FOLLOW UP WITH TRANSFER CENTER. PT AWAITING PHYSICIAN DETERMINATION PER ARABELLA.
[2022-02-03] MEDS ORDERED: NIFEdipine XL (30MG) 30 MG TAB PO SCH (09:00)
[2022-02-03] MEDS ORDERED: POTASSIUM CHLORIDE 10 MEQ TABLET.SA PO SCH (09:00)
[2022-02-03] MEDS ORDERED: ESCITALOPRAM OXALATE (10 MG) 10 MG TABLET PO SCH (09:00)
[2022-02-03] MEDS ORDERED: CHOLECALCIFEROL 1,000 UNIT TABLET (VIT D3) PO SCH (09:00)
[2022-02-03] MEDS ORDERED: TACROLIMUS ANHYDROUS 0.5 MG CAPSULE PO SCH (09:00)
[2022-02-03] MEDS ORDERED: K PHOS NEUTRAL 250 MG TABLET PO SCH (09:00)
[2022-02-03] MEDS ORDERED: MYCOPHENOLATE SODIUM 180 MG TABLET.DR PO SCH (09:00)
[2022-02-03] MEDS ORDERED: AMLODIPINE BESYLATE 10 MG TABLET PO SCH (09:00)
--- NOTE | 2022-02-03 10:30 | NUR ---
CALLED [facility] FOR FOLLOW UP, NO ANSWER. LEFT VM.
--- NOTE | 2022-02-03 11:41 | NUR ---
Josh kenyon in EDM - 02/03/22 at 1205 by TONA CALLED [facility] FOR FOLLOW UP. NO ANSWER, LEFT VM.
--- NOTE | 2022-02-03 12:05 | NUR ---
CALLED [facility] FOR FOLLOW UP. NO ANSWER, LEFT VM.
--- NOTE | 2022-02-03 12:14 | NUR ---
PT ANXIOUS, RESTLESS IN BED. MEDICATED W. ATIVAN PRN. STABLE VITALS.
--- NOTE | 2022-02-03 12:46 | NUR ---
CALLED OFFICE OF PRIMARY CARE PHYSICIAN DR. ROSE AT . ADVISED TO CALL BACK AT 1400 WHEN OFFICE REOPENS.
--- NOTE | 2022-02-03 13:13 | NUR ---
CALLED [facility] FOR FOLLOW UP. NO ANSWER.
--- NOTE | 2022-02-03 13:26 | NUR ---
MARIA EUGENIA IN CASE MANAGEMENT CALLED FOR ASSISTANCE WITH HIGHER LEVEL OF CARE TX TO [facility]
[2022-02-03] MEDS ORDERED: ACETAMINOPHEN 325 MG TABLET ONE (14:45)
--- NOTE | 2022-02-03 14:50 | NUR ---
PT C/O HEADACHE. PT MEDICATED W/ TYLENOL.
--- NOTE | 2022-02-03 15:06 | NUR ---
SPOKE TO PATIENTS SISTER, MONICA HILTON. AGREE W/ PATIENTS PLAN TO LEAVE AGAINTS [facility]. DR THEODORE CHAMBERS AWARE.
--- NOTE | 2022-02-03 15:23 | NUR ---
Patient does not wish to proceed with medical care recommended by Dr. Flores. Patient given information related to possible complications, up to and including , which could occur as a result of leaving the hospital at this time. Patient verbalizes understanding of risks involved due to leaving against medical advice. Patient has signed AMA form.
[2022-02-03 15:24] VITALS: BP 130/82
[2022-02-03] MEDS ORDERED: TOLTERODINE 2 MG TABLET PO SCH (17:00)
[2022-02-03] MEDS ORDERED: LATANOPROST EYE DROP 0.005% 2.5 ML BOTTLE EACHEYE SCH (22:00)
== END 2022-02-03 15:23 | disposition left against medical advice (07) | DRG 698 ==
LOC: ER 10:49 → MED 15:39 → ER 02-03 15:25
PROVIDERS: ADMIT Internal Medicine; ATTEND Internal Medicine
DX: T86.11 Kidney transplant rejection (principal); J96.01 Acute respiratory failure with hypoxia; I13.2 Hypertensive heart and chronic kidney disease with heart failure and with stage 5 chronic kidney disease, or end stage renal disease; J81.1 Chronic pulmonary edema; N17.9 Acute kidney failure, unspecified; I50.9 Heart failure, unspecified; H54.7 Unspecified visual loss; F32.9 Major depressive disorder, single episode, unspecified; E11.42 Type 2 diabetes mellitus with diabetic polyneuropathy; Z88.5 Allergy status to narcotic agent; Z79.4 Long term (current) use of insulin; Z79.899 Other long term (current) drug therapy; Z95.5 Presence of coronary angioplasty implant and graft; Z86.73 Personal history of transient ischemic attack (TIA), and cerebral infarction without residual deficits; I25.10 Atherosclerotic heart disease of native coronary artery without angina pectoris; I27.20 Pulmonary hypertension, unspecified; R19.7 Diarrhea, unspecified; Y92.009 Unspecified place in unspecified non-institutional (private) residence as the place of occurrence of the external cause; Y83.0 Surgical operation with transplant of whole organ as the cause of abnormal reaction of the patient, or of later complication, without mention of misadventure at the time of the procedure; E11.9 Type 2 diabetes mellitus without complications
CPT/HCPCS: 36415; 71045-TC; 80048-TC; 80076-TC; 81001; 82962-TC; 83690-TC; 83735-TC; 83880; 84100-TC; 84484-TC; 85025-TC; 93307-TC; C9803; G0378; J1815; J1940; J2060; J2405; J7507; J7518; U0003

== ENCOUNTER 2022-04-29 12:30 | Inpatient (IN) | payer MEDICARE, OTHER ==
[2022-04-29] VITALS (10 sets, daily range): BP systolic 99–152; BP diastolic 58–82
[~2022-04-29] VITALS: Ht 177.8 cm; Wt 66.2 kg
[~2022-04-29 12:30] MED LIST changes: -AMOX-430 PO; +BRIM5DRO2 EACHEYE; -DOCU100C36 PO; +ENAL10TA39 PO; +INSU100V11 SQ; +LATA2.5D15 EACHEYE; +NIFE-34 PO; -OMEG1CAP PO; +OMEP20CA15 PO; -PRED2.5T PO; +SODI10PO PO; +TACR0.5C4 PO; -TACR1CAP2 PO; -TAMS-12 PO; +TOLT2TAB2 PO; +VALG450T4 PO
--- NOTE | 2022-04-29 12:30 | NUR ---
RECEIVED PT 56 YRS MALE CAME FROM HOME by jerrell for SOB AWAKE fallow comand hx bilind and kedny transplant
--- NOTE | 2022-04-29 12:35 | NUR ---
DR. GAITAN AT BED SIDE AND RT PLACE PT ON BIPAP SITTING IPAP15/EPAP 5 RATE 16 FIO2 75 %
--- NOTE | 2022-04-29 12:45 | NUR ---
BLOOD DROW AND SENT TO LAB
--- NOTE | 2022-04-29 12:51 | NUR ---
RAPID COVID SWAB DONE AND SENT TO LAB
[2022-04-29 13:03] LABS: D-DIMER 0.84 mg/L(FEU (0.17-0.50)
[2022-04-29 13:08] LABS: BASOPHILS % (AUTO) 0.1 % (0.0-2.0); HEMATOCRIT 29 % (39-51); HEMOGLOBIN 9.3 g/dL (13.5-17.5); LYMPHOCYTES # (AUTO) 0.6 K/uL (0.8-4.8); MEAN CORPUSCULAR HGB CONC 32 g/dl (31.0-36.0); MEAN CORPUSCULAR VOLUME 100 fL (80-96); MONOCYTES # (AUTO) 0.4 K/uL (0.1-1.30); NEUTROPHILS # (AUTO) 4.9 K/uL (1.8-8.9); NEUTROPHILS % (AUTO) 83.9 % (43.0-81.0); PLATELET COUNT (AUTO) 114 K/uL (150-450); RED BLOOD CELL COUNT(AUTO) 2.94 MIL/uL (4.5-6.0); WHITE BLOOD COUNT (AUTO) 5.9 K/uL (4.3-11.0)
[2022-04-29] MEDS ORDERED: SODI650T PO (13:10)
[2022-04-29] MEDS ORDERED: ISOS20TA8 PO (13:10)
[2022-04-29] MEDS ORDERED: PITA1TAB PO (13:10)
[2022-04-29] MEDS ORDERED: PRED5TAB48 PO (13:10)
[2022-04-29] MEDS ORDERED: PATI8.4P PO (13:10)
[2022-04-29] MEDS ORDERED: ASPI-1169 PO (13:10)
[2022-04-29] MEDS ORDERED: ATOR40TA PO (13:10)
[2022-04-29] MEDS ORDERED: HYDR-4077 PO (13:10)
[2022-04-29] MEDS ORDERED: EPOE1VIA7 IJ (13:10)
[2022-04-29 13:18] LABS: ALANINE AMINOTRANSFERASE 23 U/L (12-78); ALBUMIN 3.2 g/dL (3.4-5.0); ALKALINE PHOSPHATASE 73 U/L (46-116); ASPARTATE AMINOTRANSFERASE 85 U/L (15-37); BILIRUBIN,DIRECT 0.2 mg/dL (0.0-0.2); BILIRUBIN,TOTAL 0.5 mg/dL (0.2-1.0); CARBON DIOXIDE 17 mmol/L (21-32); CHLORIDE 107 mmol/L (98-107); CREATININE 3.9 mg/dL (0.6-1.3); GLUCOSE 270 mg/dL (74-106); SODIUM SERUM 136 mmol/L (136-145); TOTAL PROTEIN, SERUM 6.1 g/dL (6.4-8.2); UREA NITROGEN, BLOOD 66 mg/dL (7-18)
--- NOTE | 2022-04-29 13:39 | NUR ---
NABOR SISTER [phone]
[2022-04-29] MEDS ORDERED: ALBUTEROL FS 2.5 MG/0.5 ML VIAL.NEB ONE (14:08)
[2022-04-29] MEDS ORDERED: ENOXAPARIN SODIUM 80 MG/0.8 ML DISP.SYRIN SQ ONE ×2 (14:28→14:30)
[2022-04-29] MEDS ORDERED: NITROGLYCERIN PACKET 1 GM PACKET ONE (14:29)
[2022-04-29] MEDS ORDERED: DEXTROSE 50%-WATER 50 ML DISP.SYRIN IV ONE (14:30)
[2022-04-29] MEDS ORDERED: PIPERACILLIN /TAZOBACTAM 3.375 G in IV D5W 50 ML IV ONE (14:30)
[2022-04-29] MEDS ORDERED: SODIUM BICARBONATE SYR 50 MEQ/50 ML DISP.SYRIN IV ONE (14:30)
[2022-04-29] MEDS ORDERED: INSULIN REGULAR, HUMAN 100 UNIT/ML 10 ML VIAL IV ONE (14:30)
[2022-04-29] MEDS ORDERED: ASPIRIN 325 MG TABLET PO ONE (14:30)
[2022-04-29] MEDS ORDERED: ALBUTEROL FS 2.5 MG/3 ML VIAL.NEB NEB ONE (14:30)
[2022-04-29] MEDS ORDERED: NITROGLYCERIN PACKET 1 GM PACKET TD ONE (14:30)
[2022-04-29] MEDS ORDERED: VANCOMYCIN 1 GM in IV D5W 250 ML IV ONE (14:30)
[2022-04-29] MEDS ORDERED: SODIUM BICARBONATE SYR 50 MEQ/50 ML DISP.SYRIN ONE (14:30)
[2022-04-29] MEDS ORDERED: ASPIRIN 325 MG TABLET ONE (14:31)
[2022-04-29] MEDS ORDERED: INSULIN REGULAR, HUMAN 100 UNIT/ML 10 ML VIAL ONE (14:31)
[2022-04-29] MEDS ORDERED: DEXTROSE 50%-WATER 50 ML DISP.SYRIN ONE (14:32)
--- NOTE | 2022-04-29 14:40 | NUR ---
K 7 ALL MEDITION FOR HIGH K GIVEN ORDER PLEAS SEE MEDITION
--- NOTE | 2022-04-29 16:41 | NUR ---
WILEY LUU AT BED SIDE SEEN PT AND WILLAM WITH PT PLAN OF CARE HD PT BERTHA SIDDIQUI WITH GOOD bruite rt upper arm
[2022-04-29 16:48] LABS: ABG BASE EXCESS -8.1 mmol/L; ABG PCO2 32.5 mmHg (35.0-45.0); ABG PH 7.333 (7.350-7.450); ABG PO2 54.9 mmHg (75.0-100.0); MetHb 0.2 % (0.0-1.5); O2Hb 86.6 % (94.0-97.0); VENT MODE, BG BiPAP
[2022-04-29] MEDS ORDERED: BUMETANIDE INJ 0.25 MG/ML VIAL IV ONE (17:00)
[2022-04-29 17:24] LABS: ABG BASE EXCESS -7.6 mmol/L; ABG PCO2 30.3 mmHg (35.0-45.0); ABG PH 7.362 (7.350-7.450); ABG PO2 60.6 mmHg (75.0-100.0); COHb 0.3 % (0.5-1.5); MetHb 0.1 % (0.0-1.5); O2Hb 88.9 % (94.0-97.0); VENT MODE, BG BiPAP
[2022-04-29] MEDS ORDERED: BUMETANIDE INJ 0.25 MG/ML VIAL ONE (17:49)
--- NOTE | 2022-04-29 18:10 | NUR ---
WATING FOR ICU BED
--- NOTE | 2022-04-29 19:02 | NUR ---
BED ASSIGNED 252. ADMITTING AWARE.
--- NOTE | 2022-04-29 19:11 | NUR ---
HAND OFF TO MIKE. Gary FRANKS TO ROOM 252 VIA TITO
--- NOTE | 2022-04-29 19:25 | NUR ---
TO ROOM 252 VIA GARNY with FIO2 100% NRM
[2022-04-29] MEDS ORDERED: TRAZODONE 50 MG TABLET PO PRN (19:30)
[2022-04-29] MEDS ORDERED: CARVEDILOL 6.25 MG TABLET PO ONE (19:30)
[2022-04-29] MEDS ORDERED: Z GUARD REMEDY 4 OZ OINT TP PRN (20:00)
[2022-04-29] MEDS ORDERED: ONDANSETRON HCL/PF 4 MG/2 ML VIAL IVP PRN (20:00)
[2022-04-29 20:11] LABS: BAND % (MANUAL) 8 % (0.0-5.0); LYMPHOCYTES % (MANUAL) 16 % (16-48); MONOCYTES % (MANUAL) 7 % (0-11.0); NEUTROPHILS % (MANUAL) 69 (42-76)
[2022-04-29] MEDS ORDERED: HEPARIN SODIUM, PORCINE 5000 UNITS/1 ML VIAL IV ONE (21:00)
[2022-04-29] MEDS: HEPARIN INFUSION/D5W 500 ML IV PRN (21:08)
--- NOTE | 2022-04-29 21:08 | NUR ---
ICU/RN: HEPARIN DRIP FOR ACS INITIATED PER PROTOCOL. WILL RECHECK PTT IN 6 HOURS.
--- NOTE | 2022-04-29 21:35 | NUR ---
ICU/RN: SPOKE WITH EDY COMERP CLARIFIED ORDERS FOR ATORVASTATIN DOSE AND RECEIVED NEW ORDERS FOR MILD INSULIN SLIDING SCALE AND ACCUCHECK ACHS.
[2022-04-29] MEDS: INSULIN GLARGINE, 100 UNIT/ML CARTRIDGE SQ SCH (22:00)
[2022-04-29] MEDS ORDERED: ATORVASTATIN 40 MG TABLET PO SCH (22:00)
[2022-04-29] MEDS ORDERED: DEXTROSE 50%-WATER 50 ML DISP.SYRIN IV PRN (22:00)
[2022-04-29] MEDS: BLOOD SUGAR DIAGNOSTIC 1 EACH STRIP IN SCH (22:38)
[2022-04-29] MEDS: BRIMONIDINE TARTRATE OPHT SOLN 5 ML BOTTLE EACHEYE SCH (22:40)
[2022-04-29] MEDS: ATORVASTATIN 40 MG TABLET PO SCH (22:41)
[2022-04-29] MEDS: GABAPENTIN 100 MG CAPSULE PO SCH (22:41)
[2022-04-29] MEDS: LATANOPROST EYE DROP 0.005% 2.5 ML BOTTLE EACHEYE SCH (22:41)
[2022-04-29] MEDS: ACETAMINOPHEN 325 MG TABLET PO PRN (23:47)
[2022-04-30] VITALS (27 sets, daily range): BP systolic 100–160; BP diastolic 39–91
--- NOTE | 2022-04-30 01:00 | NUR ---
ICU/RN: PT NOTED TO HAVE CHANGE IN HEART RHYTHM. PT NOW AFIB. PT ON HEPARIN DRIP FOR ACS. EDY SPANN NOTIFIED NO NEW ORDERS. WILL ENDORSE TO AM SHIFT TO FOLLOW UP WITH CARDIOLOGY.
--- NOTE | 2022-04-30 01:52 | NUR ---
ICU/RN: PT NOTED WITH LEFT AC IV DISLODGED. LINE DCED CATH TIP INTACT. PRESSURE APPLIED. PRESSURE DRESSING APPLIED.
[2022-04-30] MEDS ORDERED: HEPARIN INFUSION/D5W 500 ML IV PRN (03:00)
--- NOTE | 2022-04-30 03:00 | NUR ---
ICU/RN: PT NOTED TO BE BACK IN NORMAL SINUS RHYTHM.
[2022-04-30 03:45] LABS: BASOPHILS % (AUTO) 0.1 % (0.0-2.0); EOSINOPHILS % (AUTO) 0.1 % (0.0-6.0); HEMATOCRIT 27 % (39-51); LYMPHOCYTES # (AUTO) 0.7 K/uL (0.8-4.8); LYMPHOCYTES % (AUTO) 16.6 % (20.0-44.0); MEAN CORPUSCULAR HGB CONC 33 g/dl (31.0-36.0); MEAN CORPUSCULAR VOLUME 97 fL (80-96); MONOCYTES # (AUTO) 0.4 K/uL (0.1-1.30); MONOCYTES % (AUTO) 9.1 % (2.0-12.0); NEUTROPHILS # (AUTO) 3.1 K/uL (1.8-8.9); NEUTROPHILS % (AUTO) 74.1 % (43.0-81.0); PLATELET COUNT (AUTO) 96 K/uL (150-450); RED BLOOD CELL COUNT(AUTO) 2.82 MIL/uL (4.5-6.0); WHITE BLOOD COUNT (AUTO) 4.2 K/uL (4.3-11.0)
[2022-04-30 03:57] LABS: BILIRUBIN,TOTAL 0.6 mg/dL (0.2-1.0); CALCIUM, SERUM 8.9 mg/dL (8.5-10.1); CREATININE 2.9 mg/dL (0.6-1.3); MAGNESIUM 1.7 mg/dL (1.8-2.4); PHOSPHORUS 3.2 mg/dL (2.5-4.9); POTASSIUM 4.7 mmol/L (3.5-5.1)
--- NOTE | 2022-04-30 04:15 | NUR ---
ICU/RN: PTT >170 PER PROTOCOL HOLD DRIP FOR ONE HOUR AND REDUCE RATE BY 200 UNITS/HR.
[2022-04-30 05:13] LABS: BAND % (MANUAL) 6 % (0.0-5.0); BASOPHILS % (MANUAL) 0 % (0.0-2.0); EOSINOPHILS % (MANUAL) 0 % (0-4); LYMPHOCYTES % (MANUAL) 14 % (16-48); MONOCYTES % (MANUAL) 9 % (0-11.0); NEUTROPHILS % (MANUAL) 71 (42-76)
--- NOTE | 2022-04-30 05:17 | NUR ---
ICU/RN: heparin drip resumed at decreased rate per protocol 850units/hr
[2022-04-30] MEDS: BLOOD SUGAR DIAGNOSTIC 1 EACH STRIP IN SCH ×4 (07:44→21:21)
[2022-04-30] MEDS: INSULIN REGULAR, HUMAN 100 UNIT/ML 3 ML VIAL SQ PRN ×4 (07:46→22:10)
[2022-04-30] MEDS: ASPIRIN 81 MG TAB.CHEW PO SCH (08:03)
[2022-04-30] MEDS: AMLODIPINE BESYLATE 10 MG TABLET PO SCH (08:03)
[2022-04-30] MEDS: BRIMONIDINE TARTRATE OPHT SOLN 5 ML BOTTLE EACHEYE SCH ×2 (08:03→16:40)
[2022-04-30] MEDS: ESCITALOPRAM OXALATE (10 MG) 10 MG TABLET PO SCH (08:03)
[2022-04-30] MEDS: SODIUM BICARBONATE 650 MG TABLET PO SCH ×2 (08:03→16:40)
[2022-04-30] MEDS: predniSONE 5 MG TABLET PO SCH (08:03)
[2022-04-30] MEDS: hydrALAZINE HCL 50 MG TABLET PO SCH ×3 (08:04→16:40)
[2022-04-30] MEDS: MULTIVITAMINS,THERAGRAN 1 UDTAB TABLET PO SCH (08:04)
[2022-04-30] MEDS: ISOSORBIDE DINITRATE (20MG) 20 MG TABLET PO SCH (08:04)
[2022-04-30] MEDS: ACETAMINOPHEN 325 MG TABLET PO PRN (14:04)
--- NOTE | 2022-04-30 20:05 | NUR ---
RN NOTE NEW PTT 61.4, PER HEPARIN PROTOCOL, WITHIN GOAL RANGE, NO CHANGE. NEXT PTT PLACE FOR AM LABS.
[2022-04-30] MEDS: ATORVASTATIN 40 MG TABLET PO SCH (21:21)
[2022-04-30] MEDS: GABAPENTIN 100 MG CAPSULE PO SCH (21:21)
[2022-04-30] MEDS: INSULIN GLARGINE, 100 UNIT/ML CARTRIDGE SQ SCH (21:22)
[2022-04-30] MEDS: LATANOPROST EYE DROP 0.005% 2.5 ML BOTTLE EACHEYE SCH (21:23)
[2022-04-30] MEDS: HEPARIN INFUSION/D5W 500 ML IV PRN (22:09)
--- NOTE | 2022-04-30 22:10 | NUR ---
RN NOTE PATIENT BLOOD SUGAR 157. DRANK APLE JUICE AND ATE APPLE SAUCE, OK WITH REGULAR INSULIN 2 UNITS AND REFUSED LANTUS 20 UNITS, STATES DID NOT EAT WELL THROUGHOUT DAY.
[2022-04-30] MEDS: LORAZEPAM 1 MG TABLET PO PRN (23:27)
--- NOTE | 2022-04-30 23:29 | NUR ---
RN NOTE PRN ATIVAN 2MG GIVEN PER PATIENT REQUEST FOR FEELING ANXIOUS.
[2022-05-01] VITALS (18 sets, daily range): BP systolic 88–159; BP diastolic 31–79
[2022-05-01 05:06] LABS: BASOPHILS % (AUTO) 0.1 % (0.0-2.0); EOSINOPHILS % (AUTO) 0.1 % (0.0-6.0); HEMATOCRIT 25 % (39-51); HEMOGLOBIN 8.3 g/dL (13.5-17.5); LYMPHOCYTES # (AUTO) 0.5 K/uL (0.8-4.8); LYMPHOCYTES % (AUTO) 20.7 % (20.0-44.0); MEAN CORPUSCULAR HGB CONC 33 g/dl (31.0-36.0); MEAN CORPUSCULAR VOLUME 98 fL (80-96); MONOCYTES # (AUTO) 0.4 K/uL (0.1-1.30); NEUTROPHILS # (AUTO) 1.7 K/uL (1.8-8.9); NEUTROPHILS % (AUTO) 65.1 % (43.0-81.0); PLATELET COUNT (AUTO) 96 K/uL (150-450); WHITE BLOOD COUNT (AUTO) 2.5 K/uL (4.3-11.0)
[2022-05-01 05:19] LABS: CALCIUM, SERUM 8.7 mg/dL (8.5-10.1); CREATININE 2.4 mg/dL (0.6-1.3); POTASSIUM 4.1 mmol/L (3.5-5.1)
[2022-05-01] MEDS: HEPARIN INFUSION/D5W 500 ML IV PRN (05:36)
--- NOTE | 2022-05-01 05:41 | NUR ---
RN NOTE PTT 77.9. PER HEPARIN PROTOCOL, DECREASE BY 50 UNITS/HR. NEW RATE 750UNITS/HR. NEXT PTT 1140.
[2022-05-01 06:01] LABS: BAND % (MANUAL) 4 % (0.0-5.0); BASOPHILS % (MANUAL) 0 % (0.0-2.0); EOSINOPHILS % (MANUAL) 0 % (0-4); LYMPHOCYTES % (MANUAL) 18 % (16-48); MONOCYTES % (MANUAL) 10 % (0-11.0); NEUTROPHILS % (MANUAL) 68 (42-76)
--- NOTE | 2022-05-01 06:24 | NUR ---
RN CLOSING NOTE A/OX4. RECEIVED PATIENT ON 15L NRB. TITRATED PATIENT TO 6L NC. O2 SAT 99%. NO SOB REPORTED. NO C/O PAIN. SINUS RHYTHM / SINUS TACHY ON THE MONITOR. HR HIGH OF 110. PRN ATIVAN AND TRAZODONE GIVEN PER PATIENT REQUEST. HD DONE LAST NIGHT 1.7L OUT. HEPARIN GTT CONTINUES TO RUN AT 750 UNITS/HR. NEXT PTT IS 1140. PLAN FOR CM TO TRANSFER TO [facility]. AND HEART CATH ONCE RESP AND RENAL FUNCTION STABILIZE.
[2022-05-01] MEDS: BLOOD SUGAR DIAGNOSTIC 1 EACH STRIP IN SCH ×4 (08:09→21:51)
--- NOTE | 2022-05-01 08:09 | NUR ---
ICU/RN BLOOD SUGAR 131 THIS AM. PT REFUSES INSULIN HE DOES NOT HAVE AN APPETITE SINCE HIS ORAL SURGERY ON 04/28.
[2022-05-01] MEDS: ASPIRIN 81 MG TAB.CHEW PO SCH (08:10)
[2022-05-01] MEDS: AMLODIPINE BESYLATE 10 MG TABLET PO SCH (08:10)
[2022-05-01] MEDS: hydrALAZINE HCL 50 MG TABLET PO SCH ×3 (08:10→18:25)
[2022-05-01] MEDS: ISOSORBIDE DINITRATE (20MG) 20 MG TABLET PO SCH (08:10)
[2022-05-01] MEDS: predniSONE 5 MG TABLET PO SCH (08:10)
[2022-05-01] MEDS: ESCITALOPRAM OXALATE (10 MG) 10 MG TABLET PO SCH (08:10)
[2022-05-01] MEDS: SODIUM BICARBONATE 650 MG TABLET PO SCH ×2 (08:10→18:26)
[2022-05-01] MEDS: MULTIVITAMINS,THERAGRAN 1 UDTAB TABLET PO SCH (08:10)
[2022-05-01] MEDS: BRIMONIDINE TARTRATE OPHT SOLN 5 ML BOTTLE EACHEYE SCH ×2 (08:31→17:00)
--- NOTE | 2022-05-01 10:37 | NUR ---
ICU/RN RECEIVED CALL FROM [facility] REGARDING TRANSFER. QUESTIONS ANSWERED. [facility] STATES THEY ARE CONTACTING PT'S TRANSPLANT TEAM AT THIS TIME AND WILL CONTACT DR. HOGAN AND JACK NEEDED.
[2022-05-01] MEDS ORDERED: NEPRO VAN 237 ML CAN PO PRN (12:00)
[2022-05-01] MEDS: INSULIN REGULAR, HUMAN 100 UNIT/ML 3 ML VIAL SQ PRN ×3 (12:07→21:56)
--- NOTE | 2022-05-01 17:21 | NUR ---
ICU/RN PT TRANSFERRED ROOM 308-1. REPORT GIVEN TO TINY JONES. PT STABLE DURING TRANSFER ON 3L O2 NC
--- NOTE | 2022-05-01 17:30 | NUR ---
RN note Transferred patient from ICU to telemetry unit with carer's accompany. monitoring analyst showed SR all along with HR 70/min. Patient does not have active complaint all along. Heparin drip running at 900units/hr, next INR check at 22:00. New environment orientation provided to patient. Bong rocha is placed within reach. Bed is locked and placed in the lowest position. All safety measures have been implemented. Will continue monitor and care.
[2022-05-01] MEDS: MYCOPHENOLIC ACID 180 MG PO SCH (18:26)
[2022-05-01] MEDS: TACROLIMUS 1 MG PO SCH (18:26)
--- NOTE | 2022-05-01 19:30 | NUR ---
PUSHER RUNNER OPENING NOTE RECEIVED PATIENT IN BED; AWAKE, ALERT AND ORIENTED X 3. PATIENT IS BLIND. ON O2 INHALATION @ 3 LPM VIA NASAL CANNULA; TOLERATING WELL. NOT IN ANY FORM OF RESPIRATORY OR CARDIAC DISTRESS. DENIES ANY PAIN OR DISCOMFORT AT THIS TIME. ON TELEMETRY MONITORING WHICH READS SINUS RHYTHM HR-90 BPM. WITH IV ACCESS ON LEFT UPPER ARM MIDLINE 18g; PATENT, INTACT AND SALINE LOCKED. WITH HEPARIN DRIP INFUSION RUNNING @ LEFT HAND 20g; PATENT AND INTACT REGULATED @ 900 UNITS/HR; FLUSHES WELL. WITH RIGHT UPPER ARM AV FISTULA. ABLE TO MAKE NEEDS KNOWN. SAFETY PRECAUTIONS IMPLEMENTED: CALL LIGHT AND TABLE WITHIN EASY REACH, SIDE RAILS UP X 3, BED IN LOWEST LOCKED POSITION. WILL CONTINUE PLAN OF CARE.
[2022-05-01] MEDS: LATANOPROST EYE DROP 0.005% 2.5 ML BOTTLE EACHEYE SCH (21:37)
[2022-05-01] MEDS: ATORVASTATIN 40 MG TABLET PO SCH (21:37)
[2022-05-01] MEDS: GABAPENTIN 100 MG CAPSULE PO SCH (21:38)
[2022-05-01] MEDS: INSULIN GLARGINE, 100 UNIT/ML CARTRIDGE SQ SCH (21:55)
[2022-05-02] VITALS: BP 122/77
--- NOTE | 2022-05-02 00:26 | NUR ---
RN NOTE RECEIVED APTT RESULT FROM LAB - 118.3. BLOOD SPECIMEN WAS DRAWN FROM LEFT UPPER ARM MIDLINE. ORDERED REPEAT APTT STAT ORDER TO BE DRAWN ON LEFT EXTREMITY PERIPHERALLY. HELD HEPARIN DRIP FOR 60 MINS.
--- NOTE | 2022-05-02 02:20 | NUR ---
RN NOTE APTT RESULT - 38.7. HEPARIN DRIP INFUSION RATE STARTED; INCREASED RATE BY 150 UNITS/HR PER HEPARIN DRIP PROTOCOL FROM 900 UNITS/HR TO 1050 UNITS/HR. WILL CONTINUE TO MONITOR PATIENT.
[2022-05-02 04:00] VITALS: BP 155/75
[2022-05-02] MEDS: TACROLIMUS 1 MG PO SCH ×2 (05:17→17:00)
[2022-05-02] MEDS: MYCOPHENOLIC ACID 180 MG PO SCH ×2 (05:17→17:00)
[2022-05-02] MEDS: INSULIN REGULAR, HUMAN 100 UNIT/ML 3 ML VIAL SQ PRN ×2 (06:35→11:54)
[2022-05-02] MEDS: BLOOD SUGAR DIAGNOSTIC 1 EACH STRIP IN SCH ×3 (06:52→17:07)
--- NOTE | 2022-05-02 07:00 | NUR ---
ENAMEL DIPPER CLOSING NOTE PATIENT IN BED; AWAKE, A/O X 3. PATIENT IS BLIND. ON O2 INHALATION @ 3 LPM VIA NASAL CANNULA; TOLERATING WELL. IN NO ACUTE DISTRESS. DENIES ANY PAIN OR DISCOMFORT AT THIS TIME. WITH IV ACCESS ON LEFT UPPER ARM MIDLINE 18g; PATENT, INTACT AND SALINE LOCKED. ON TELE MONITORING WHICH READS SR WITH ST DEPRESSION HR-91 BPM. WITH HEPARIN DRIP INFUSION RUNNING @ LEFT HAND 20g; PATENT AND INTACT REGULATED @ 1050 UNITS/HR; FLUSHES WELL. WITH RIGHT UPPER ARM AV FISTULA. ALL DUE MEDS GIVEN ORDERED. ALL NEEDS ATTENDED. SAFETY PRECAUTIONS MAINTAINED: CALL LIGHT AND TABLE WITHIN EASY REACH, SIDE RAILS UP X 3, BED IN LOWEST LOCKED POSITION. ENDORSED TO MORNING SHIFT FOR [place].
--- NOTE | 2022-05-02 07:25 | NUR ---
AGING BOX HAND OPENING NOTES RECEIVED PATIENT AWAKE IN BED IN NO ACUTE SIGNS OF DISTRESS. A/O X 3. ABLE TO MAKE NEEDS KNOWN, DENIES PAIN OR ANY DISCOMFORTS AT THIS TIME. PATIENT IS BLIND. ON O2 @ 3 LPM VIA N/C, TOLERATING WELL, BREATHING EVEN AND UNLABORED. ON TELE-MONITOR WITH CURRENT READING OF OF NSR WITH ST DEPRESSION, HR-90, NO C/O CARDIAC DISTRESS VOICED AT THIS TIME. ARIELLE MIDLINE #18g PATENT, INTACT AND SL. PT ON HEPARIN DRIP ON LEFT HAND #20g @ 1050 UNITS/HR, NO /SS OF INFILTRATION AT SITE NOTED. LATEST PTT RESULTS STILL PENDING. PT WITH RIGHT UPPER ARM AV FISTULA WITH + BRUIT/THRILL PRESENT. SAFETY MEASURES IN PLACE: BED IN LOWEST LOCKED POSITION, SIDE RAILS UP X 3, BED ALARM ON, CALL LIGHT AND TRAY TABLE WITHIN EASY REACH. WILL CONTINUE PLAN OF CARE.
[2022-05-02 08:00] VITALS: BP 157/50
[2022-05-02] MEDS: LORAZEPAM 1 MG TABLET PO PRN (08:01)
[2022-05-02 08:11] LABS: CALCIUM, SERUM 8.9 mg/dL (8.5-10.1); CREATININE 2.6 mg/dL (0.6-1.3); MAGNESIUM 2.2 mg/dL (1.8-2.4)
[2022-05-02] MEDS: HEPARIN INFUSION/D5W 500 ML IV PRN (08:30)
[2022-05-02 08:35] LABS: BASOPHILS % (AUTO) 0.2 % (0.0-2.0); HEMATOCRIT 27 % (39-51); LYMPHOCYTES # (AUTO) 0.5 K/uL (0.8-4.8); LYMPHOCYTES % (AUTO) 22.3 % (20.0-44.0); MEAN CORPUSCULAR HGB CONC 33 g/dl (31.0-36.0); MEAN CORPUSCULAR VOLUME 98 fL (80-96); MONOCYTES # (AUTO) 0.3 K/uL (0.1-1.30); MONOCYTES % (AUTO) 13.4 % (2.0-12.0); NEUTROPHILS # (AUTO) 1.3 K/uL (1.8-8.9); NEUTROPHILS % (AUTO) 63.1 % (43.0-81.0); PLATELET COUNT (AUTO) 91 K/uL (150-450); RED BLOOD CELL COUNT(AUTO) 2.75 MIL/uL (4.5-6.0); WHITE BLOOD COUNT (AUTO) 2.1 K/uL (4.3-11.0)
[2022-05-02] MEDS: MULTIVITAMINS,THERAGRAN 1 UDTAB TABLET PO SCH (08:36)
[2022-05-02] MEDS: BRIMONIDINE TARTRATE OPHT SOLN 5 ML BOTTLE EACHEYE SCH ×2 (08:36→17:00)
[2022-05-02] MEDS: ESCITALOPRAM OXALATE (10 MG) 10 MG TABLET PO SCH (08:37)
[2022-05-02] MEDS: predniSONE 5 MG TABLET PO SCH (08:37)
--- NOTE | 2022-05-02 08:37 | NUR ---
RN NOTES PATIENT RECEIVED LATEST PTT 40.9 AT 0825. HEPARIN DRIP RATE INCREASED BY 150 UNIT/HR FROM 1050 TO 1200 PER HEPARIN DRIP PROTOCOL. NEXT PTT DRAW WILL BE @ 1425.
[2022-05-02] MEDS: SODIUM BICARBONATE 650 MG TABLET PO SCH ×2 (08:38→17:00)
[2022-05-02] MEDS: ASPIRIN 81 MG TAB.CHEW PO SCH (08:38)
[2022-05-02] MEDS: ISOSORBIDE DINITRATE (20MG) 20 MG TABLET PO SCH (08:40)
[2022-05-02] MEDS: hydrALAZINE HCL 50 MG TABLET PO SCH ×3 (08:41→17:00)
[2022-05-02] MEDS: AMLODIPINE BESYLATE 10 MG TABLET PO SCH (08:41)
[2022-05-02 08:50] LABS: BAND % (MANUAL) 4 % (0.0-5.0); EOSINOPHILS % (MANUAL) 2 % (0-4); LYMPHOCYTES % (MANUAL) 26 % (16-48); METAMYELOCYTES % 1 % (0-0); MONOCYTES % (MANUAL) 7 % (0-11.0); MYELOCYTES % 1 % (0-0); NEUTROPHILS % (MANUAL) 59 (42-76)
[2022-05-02 12:00] VITALS: BP 102/48
--- NOTE | 2022-05-02 14:30 | NUR ---
RN NOTES TOBACCO STEMMER CAME TO DRAW PTT BUT PT REFUSED. TOBACCO STEMMER WILL COME IN 30MINS TO TRY AGAIN.
--- NOTE | 2022-05-02 15:00 | NUR ---
RN NOTES SPOKE WITH SISTER (MONICA) 2X VIA PHONE, BUT SHE SAID THAT PT HAS HIS OWN DECISION AND CANNOT DO ANYTHING ABOUT IT. 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
--- NOTE | 2022-05-02 15:05 | NUR ---
RN NOTES FIRE AND SAFETY HELPER CAME TO DRAW PTT BUT PT STILL REFUSED DESPITE EDUCATING IMPORTANCE OF BLOOD TEST. PT VERBALIZED THAT HE WANTS TO GO AMA.
--- NOTE | 2022-05-02 15:35 | NUR ---
RN NOTES PT INSISTENTLY WANTED TO GO AGAINST [facility] DESPITE EXPLAINING THE RISKS AND CONSEQUENCES INVOLVED IN LEAVING THE HOSPITAL AT THIS TIME, THE BENEFITS OF CONTINUED TX AND HOSPITALIZATION. ALSO EXPLAINED POSSIBLE COMPLICATIONS, UP TO AND INCLUDING , WHICH COULD OCCUR A RESULT OF LEAVING THE HOSPITAL AT THIS TIME, PT VERBALIZED UNDERSTANDING AND SIGNED AMA FORM. IV ACCESS ON LEFT HAND G#18 AND MIDLINE ON ARIELLE G# 18 BOTH REMOVED. DRY PRESSURE DRESSINGS APPLIED AT SITES. PT STATED HE WILL CALL TRANSPORT TO GO HOME.
[2022-05-02 16:00] VITALS: BP 174/68
--- NOTE | 2022-05-02 16:25 | NUR ---
RN NOTES PT DID NOT CALL TRANSPORT INSTEAD HE CALLED 911. HE KEPT STATING THAT HE WILL JUST WAIT FOR THE POLICE TO COME. SISTER STILL NOT ANSWERING OUR CALLS. PT REFUSING ANY TREATMENT AND MEDICATIONS.
--- NOTE | 2022-05-02 16:51 | NUR ---
RN NOTES PT REFUSED HIS 5PM MEDICATIONS AND ALL TREATMENTS DESPITE ENCOURAGEMENTS. TRIED TO CONTACT PT'S SISTER SEVERAL TIMES BUT NOT ANSWERING.
--- NOTE | 2022-05-02 18:13 | NUR ---
RN NOTES PT STATED HE DOES NOT WANT TO BOOK A TAXI TO GO HOME IF NOT PAID BY THE HOSPITAL BUT PATIENT IS GOING HOME AMA.
--- NOTE | 2022-05-02 19:15 | NUR ---
AMA NOTES PT IS A/O X3/4. ABLE TO MAKE NEEDS KNOWN. ALL BELONGINGS ACCOUNTED FOR. PT REFUSED PHOTOS OF SKIN ISSUES TO BE TAKEN. HOME MEDICATIONS TACROLIMUS 1MG AND MYCOPHENOLIC ACID 180MG GIVEN TO PT. PT LEFT UNIT AMA AT 1900 VIA WHEELCHAIR ACCOMPANIED BY AND ANGELA( PT'S FRIEND). AND CHARGE NURSE AWARE.
[2022-05-06] MEDS ORDERED: EPOETIN ALFA-EPBX 10,000 UNIT/ML VIAL SQ SCH (15:00)
== END 2022-05-02 18:50 | disposition left against medical advice (07) | DRG 280 ==
LOC: ER 12:50 → ICU 19:18 → TELE 05-01 16:56
PROVIDERS: ADMIT Nurse Practitioner Acute Care; ATTEND Nurse Practitioner Acute Care
PROC: 5A09357 Assistance with Respiratory Ventilation, Less than 24 Consecutive Hours, Continuous Positive Airway Pressure (ICD-10-PCS; principal; 2022-04-29)
PROC: 5A1D70Z Performance of Urinary Filtration, Intermittent, Less than 6 Hours Per Day (ICD-10-PCS; 2022-04-29)
PROC: 05HC33Z Insertion of Infusion Device into Left Basilic Vein, Percutaneous Approach (ICD-10-PCS; 2022-04-30)
DX: I13.0 Hypertensive heart and chronic kidney disease with heart failure and stage 1 through stage 4 chronic kidney disease, or unspecified chronic kidney disease (principal); I21.A1 Myocardial infarction type 2; I50.43 Acute on chronic combined systolic (congestive) and diastolic (congestive) heart failure; J96.01 Acute respiratory failure with hypoxia; N18.6 End stage renal disease; T86.12 Kidney transplant failure; N17.9 Acute kidney failure, unspecified; E87.20 Acidosis, unspecified; D84.9 Immunodeficiency, unspecified; K91.840 Postprocedural hemorrhage of a digestive system organ or structure following a digestive system procedure; Y92.89 Other specified places as the place of occurrence of the external cause; E11.22 Type 2 diabetes mellitus with diabetic chronic kidney disease; Z20.822 Contact with and (suspected) exposure to COVID-19; Z86.73 Personal history of transient ischemic attack (TIA), and cerebral infarction without residual deficits; Z95.5 Presence of coronary angioplasty implant and graft; Z99.2 Dependence on renal dialysis; I25.2 Old myocardial infarction; H54.7 Unspecified visual loss; Z88.5 Allergy status to narcotic agent; Z79.82 Long term (current) use of aspirin; Z79.4 Long term (current) use of insulin; Z79.899 Other long term (current) drug therapy; J44.9 Chronic obstructive pulmonary disease, unspecified; I25.10 Atherosclerotic heart disease of native coronary artery without angina pectoris; M89.8X9 Other specified disorders of bone, unspecified site; Z79.60 Long term (current) use of unspecified immunomodulators and immunosuppressants; E87.5 Hyperkalemia; F43.9 Reaction to severe stress, unspecified; D63.8 Anemia in other chronic diseases classified elsewhere; D69.6 Thrombocytopenia, unspecified; I42.9 Cardiomyopathy, unspecified; Y84.8 Other medical procedures as the cause of abnormal reaction of the patient, or of later complication, without mention of misadventure at the time of the procedure; Y92.531 Health care provider office as the place of occurrence of the external cause
CPT/HCPCS: 36415; 36600; 71045-TC; 80048-TC; 80053-TC; 80061-TC; 80076-TC; 82803-TC; 82962-TC; 83605-TC; 83735-TC; 83880; 84100-TC; 84484-TC; 85025-TC; 85378-TC; 85730-TC; 86706; 87040-TC; 87081-TC; 87340; 90935-TC; 93307-TC; 94799-TC; A6403; C9803; G0378; J1644; J1650; J1815; J2543; J3370; J3490; J7030; J7060; J7512